=== PATIENT | male | born 2000 | race Caucasian/White ===

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

== ENCOUNTER 2018-06-06 12:53 | Emergency (ER) | payer OTHER ==
[2018-06-06 12:59] VITALS: BP 132/67; PULSE 97; TEMP 99.1; BMI 28.5
--- NOTE | 2018-06-06 13:16 | PDOC ---
Suture Removal/Wound Check HPI - History of Present Illness Chief Complaint: Suture/Staple Removal(Here) Stated Complaint: SUTURE REMOVAL LEFT INDEX FINGER Time Seen by Provider: 06/06/18 13:01 History Source: Yes: Patient Exam Limitations: Yes: No Limitations Past History - Past Medical History Allergies/Adverse Reactions: Allergies Allergy/AdvReac Type Severity Reaction Status Date / Time Penicillins Allergy Verified 06/06/18 12:56 NUTS Allergy Uncoded 05/23/18 16:47 Home Medications: Ambulatory Orders NK [No Known Home Medication] 06/06/18 COPD: No DVT: No Psychiatric Problems: Yes (ADHD) Seizures: Yes - Immunization History Td Vaccination: Yes Immunization Up to Date: Yes - Suicide/Smoking/Psychosocial Hx Smoking Status: No Smoking History: Never smoked Have you smoked in the past 12 months: No Number of Cigarettes Smoked Daily: 0 Information on smoking cessation initiated: No Hx Alcohol Use: No Drug/Substance Use Hx: No Substance Use Type: Alcohol *Physical Exam - Vital Signs Last Vital Signs Temp Pulse Resp BP Pulse Ox 99.1 F 97 H 16 132/67 97 06/06/18 12:55 06/06/18 12:55 06/06/18 12:55 06/06/18 12:55 06/06/18 12:55 *DC/Admit/Observation/Transfer Diagnosis at time of Disposition: Visit for suture removal Finger laceration Qualifiers: Encounter type: subsequent encounter Finger: index finger Damage to nail status : without damage Foreign body presence: without foreign body Laterality: left Qualified Code(s): S61.211D - Laceration without foreign body of left index finger without damage to nail, subsequent encounter - Discharge Dispostion Disposition: HOME Condition at time of disposition: Stable - Referrals - Patient Instructions Printed Discharge Instructions: DI for Suture Removal - Post Discharge Activity
== END 2018-06-06 13:21 | disposition home or self-care (01) ==
LOC: FER 12:53
DX: Z48.02 Encounter for removal of sutures (principal)
CPT/HCPCS: 99281-25

== ENCOUNTER 2019-09-15 16:36 | Emergency (ER) | payer OTHER ==
[2019-09-15] MEDS ORDERED: IBUPROFEN 600 MG TABLET (FP) PO ONE ×2 (16:42)
[2019-09-15 16:53] VITALS: BP 143/75; PULSE 82; TEMP 98.3; BMI 24.0
--- NOTE | 2019-09-15 17:23 | PDOC ---
Documentation entered by Kiko Ramsey SCRIBE, acting as scribe for Osei Chen MD. Osei Chen MD: This documentation has been prepared by the joseeBraulio Aiswarya, SCRIBE, under my direction and personally reviewed by me in its entirety. I confirm that the documentation accurately reflects all work, treatment, procedures, and medical decision making performed by me. History of Present Illness - General Chief Complaint: Pain, Acute Stated Complaint: CLOSED FINGER IN DOOR Time Seen by Provider: 09/15/19 16:38 History Source: Patient Exam Limitations: No Limitations - History of Present Illness Initial Comments: 09/15/19 16:52 The patient is a 18 year old male, with a significant PMH of ADHD and seizures , who presents to the emergency department with right finger injury that occurred today. 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 He reports mild pain and abrasion to the 4th and 5th digit distally. The patient denies any numbness or tingling. Denies any other injuries. Denies pain on flexion and extension. UTD with Tetanus. Allergies: Penicillin Past surgical history: None reported Social history: None reported PCP: None reported 09/15/19 17:09 Past History - Past Medical History Allergies/Adverse Reactions: Allergies Allergy/AdvReac Type Severity Reaction Status Date / Time Penicillins Allergy Verified 09/15/19 16:37 NUTS Allergy Uncoded 09/15/19 16:37 Home Medications: Ambulatory Orders NK [No Known Home Medication] 06/06/18 COPD: No DVT: No Psychiatric Problems: Yes (ADHD) Seizures: Yes - Immunization History Td Vaccination: Yes Immunization Up to Date: Yes - Psycho Social/Smoking Cessation Hx Smoking Status: No Smoking History: Never smoked Have you smoked in the past 12 months: No Number of Cigarettes Smoked Daily: 0 Hx Alcohol Use: No Drug/Substance Use Hx: No Substance Use Type: Alcohol Review of Systems - Review of Systems Able to Perform ROS?: Yes Comments:: 09/15/19 16:47 GENERAL/CONSTITUTIONAL: No fever or chills. No weakness. HEAD, EYES, EARS, NOSE AND THROAT: No change in vision. No ear pain or discharge. No sore throat. MUSCULOSKELETAL: No joint or muscle swelling or pain. No neck or back pain. SKIN: No rash NEUROLOGIC: No headache, vertigo, loss of consciousness, or change in strength/ sensation. ENDOCRINE: No increased thirst. No abnormal weight change. HEMATOLOGIC/LYMPHATIC: No anemia, easy bleeding, or history of blood clots. ALLERGIC/IMMUNOLOGIC: No hives or skin allergy. *Physical Exam - Vital Signs Last Vital Signs Temp Pulse Resp BP Pulse Ox 98.3 F 82 16 143/75 100 09/15/19 16:37 09/15/19 16:37 09/15/19 16:37 09/15/19 16:37 09/15/19 16:37 - Physical Exam 09/15/19 16:47 GENERAL: Awake, alert, and fully oriented, in no acute distress HEAD: No signs of trauma EXTREMITIES: Normal range of motion, no edema. No clubbing or cyanosis. No cords, erythema, or tenderness NEUROLOGICAL: Normal speech. SKIN: +4th and 5th right digit small abrasion to the distal aspect. Full ROM. ED Treatment Course - RADIOLOGY Radiology Studies Ordered: Category Date Time Status HAND- RIGHT [RAD] Stat Radiology 09/15/19 16:43 Taken - Medications Given in the ED: ED Medications Discontinued Medications Generic Name Dose Route Start Last Admin Trade Name Freq PRN Reason Stop Dose Admin Ibuprofen 600 mg 09/15/19 16:42 09/15/19 17:00 Motrin - PO 09/15/19 16:43 600 mg ONCE ONE Administration ED Progress Note - Progress Note Progress Note: 09/15/19 17:09 Pt doing well Right finger contusion Ice, Motrin x-ray right 4th digit: no fracture seen 09/15/19 17:10 [id number] digit: no swelling, full ROM, abrasion to right 4th digit, Discharge - Discharge Information Problems reviewed: Yes Clinical Impression/Diagnosis: Finger contusion Qualifiers: Encounter type: initial encounter Finger: ring finger Damage to nail status: without damage Laterality: right Qualified Code(s): S60.041A - Contusion of right ring finger without damage to nail, initial encounter Condition: Stable - Admission No - Follow up/Referral - Patient Discharge Instructions Patient Printed Discharge Instructions: Contusion Additional Instructions: Ice, Motrin, rest If worsen return to ER - Post Discharge Activity
== END 2019-09-15 17:26 ==
LOC: FER 16:36
CPT/HCPCS: 73130-TC-RT-FY; 99282-25